=== PATIENT | male | born 1955 | race Two or more races ===

== ENCOUNTER 2018-03-19 12:00 | Emergency (ER) | payer MEDICAID ==
[~2018-03-19] VITALS: Ht 167.6 cm; Wt 68.0 kg
[2018-03-19 12:09] VITALS: BP 147/83
[2018-03-19] MEDS ORDERED: BACITRACIN-P28.35 GM TP (12:23)
--- NOTE | 2018-03-19 12:23 | Emergency Room Report ---
History of Present Illness General Chief Complaint: Laceration Source: Patient Present Illness HPI 62-year-old male patient presents ER complaining of laceration on his left hand and wrist. Also notes cut on his right hand. Reports that he was cleaning pyretics when it broke in his hands. reports mild bleeding at site of injuries however well controlled with gauze. Reports up-to-date on tetanus vaccinations. Reports he is right-hand dominant. It's no loss of sensation or range of motion. Declined need for pain medication. Allergies: Coded Allergies: No Known Allergies (Unverified , 03/19/18) Patient History Past Medical History: see triage record Reviewed Nursing Documentation: PMH: Agreed; PSxH: Agreed Nursing Documentation-PMH Past Medical History: No Stated History Review of Systems All Other Systems: negative except mentioned in HPI Physical Exam Vital Signs Date Time Temp Pulse Resp B/P (MAP) Pulse Ox O2 Delivery O2 Flow Rate FiO2 03/19/18 12:08 98.3 78 16 147/83 96 Room Air 98.2 Sp02 EP Interpretation: reviewed, normal General Appearance: well appearing, no apparent distress, alert, GCS 15, non- toxic Head: normocephalic, atraumatic Eyes: bilateral eye normal inspection, bilateral eye PERRL ENT: hearing grossly normal, normal pharynx, no angioedema, normal voice, uvula midline, moist mucus membranes Neck: full range of motion Respiratory: lungs clear, normal breath sounds, no rhonchi, no respiratory distress, no accessory muscle use, no wheezing, speaking full sentences Cardiovascular #1: regular rate, rhythm, no edema Cardiovascular #2: 2+ radial (R), 2+ radial (L) Musculoskeletal: back normal, digits/nails normal, gait/station normal, normal range of motion, non-tender, other - NVI, cap refill<2sec Neurologic: alert, oriented x3, responsive, motor strength/tone normal, sensory intact Psychiatric: mood/affect normal Skin: abrasions - small linear less than 1 cm on palmar side of right wrist, no surrounding erythema or edema, no bleeding, dried blood present; 2-3mm linear abrasion on radial aspect of left thumb, laceration - 1 cm laceration on dorsum of left hand, no active bleeding, no surrounding erythema or edema wound edges well approximated Medical Decision Making PA Attestation Dr. Tyler is my supervising Physician whom patient management has been discussed with. Diagnostic Impression: Primary Impression: Laceration ER Course Pt presents to ED c/o laceration on left hand and cuts on left thumb and right wrist. DDX considered but are not limited to laceration, abrasion, contusion, cellulitis. VITAL SIGNS are WNL, patient is afebrile ED INTERVENTIONS: Wound was cleaned and irrigated using normal saline. Wound superficial, explored, low suspicion for retained FB. wound edges well approximated, believe patient would benefit from use of Dermabond rather than sutures to approximate wound edges. Dermabond applied to laceration on dorsum of hand, abrasions do not require wound closure. follow-up with PCP in 5-7 days for wound check. Patient reports understanding and agreement to treatment plan. Keep wound clean and dry. use Neosporin to help reduce parents scars. DISCHARGE: Rx provided for Bacitracin At this time pt is stable for d/c to home. Patient resting comfortably, in no acute distress, nontoxic appearing, talking without difficulty. Will provide with patient care instructions and any necessary prescriptions. Patient to take medication as instructed. Care plan and follow-up instructions provided. Work note provided to patient. Patient questions asked and answered. Patient instructed to follow-up with primary care provider in 5-7 days for wound check . ER precautions given. Patient instructed to return to ER immediately for any new or worsening of symptoms. - Please note that this Emergency Department Report was dictated using [id number] and pediatric neurologist technology software, occasionally this can lead to erroneous entry secondary to interpretation by the dictation equipment. Last Vital Signs Date Time Temp Pulse Resp B/P (MAP) Pulse Ox O2 Delivery O2 Flow Rate FiO2 03/19/18 12:08 98.3 78 16 147/83 96 Room Air 98.2 Disposition: HOME, SELF-CARE Condition: Stable Scripts Bacitracin/Polymyxin B Sulfate (BACITRACIN-POLYMYXIN OINTMENT) 28.35 Gm Oint...g. 1 APPLIC TP BID, #28 GM Prov: Julian Varner 03/19/18 Patient Instructions: Nonsutured Laceration Care Additional Instructions: Patient instructed to follow-up with primary care provider in 5-7days for wound check. Take medications as directed. Keep wound clean and dry. Patient questions asked and answered. ER precautions given, patient instructed to return to ER immediately for any new or worsening of symptoms. Julian Varner Mar 19, 2018 12:23
[2018-03-19 12:41] VITALS: BP 147/83
== END 2018-03-19 12:41 | disposition home or self-care (01) ==
LOC: EMR 12:13
DX: S61.412A Laceration without foreign body of left hand, initial encounter (principal); S60.312A Abrasion of left thumb, initial encounter; S60.811A Abrasion of right wrist, initial encounter; W25.XXXA Contact with sharp glass, initial encounter; Y93.89 Activity, other specified; Y92.9 Unspecified place or not applicable; Y99.9 Unspecified external cause status
CPT/HCPCS: 12001; 99283; Z7502